=== PATIENT | female | born 1960 | race Caucasian/White ===

== ENCOUNTER 2018-01-11 14:06 | Emergency (ER) | payer MEDICAID ==
[~2018-01-11] VITALS: Ht 167.6 cm; Wt 69.4 kg
[2018-01-11 14:14] VITALS: BP 125/78
[2018-01-11] MEDS ORDERED: CEPHALEXIN 500 MG CAPSULE PO ONE (14:30)
[2018-01-11] MEDS ORDERED: CEPHALEXIN 500 MG CAPSULE ONE (14:36)
== END 2018-01-11 14:51 | disposition home or self-care (01) ==
LOC: ED 14:45
DX: L03.031 Cellulitis of right toe (principal); B35.3 Tinea pedis
CPT/HCPCS: 82962; 99283

== ENCOUNTER 2018-07-31 20:22 | Emergency (ER) | payer SELFPAY ==
[~2018-07-31] VITALS: Ht 167.6 cm; Wt 69.3 kg
--- NOTE | 2018-07-31 20:44 | NUR ---
PT STATES THAT SHE HAS BEEN HAVING N/V/D X 5 DAYS. PT STATES THAT SHE HASN'T REALLY BEEN ABLE TO KEEP ANY FOOD OR FLUIDS DOWN. monitors applied, siderails up x2, call light within reach
[2018-07-31] MEDS ORDERED: METH500T7 PO (20:47)
[2018-07-31] MEDS ORDERED: DIPH25CA61 PO (20:47)
[2018-07-31] MEDS ORDERED: MONT4GRA PO (20:47)
[2018-07-31] MEDS ORDERED: OXYB5TAB7 PO (20:47)
[2018-07-31] MEDS ORDERED: SODIUM CHLORIDE FLUSH 10ML SYR IVF ONE (21:00)
[2018-07-31] MEDS ORDERED: SODIUM CHLORIDE 0.9% 1,000ML IVBOLUS ONE (21:00)
[2018-07-31] MEDS ORDERED: FAMOTIDINE 20 MG/2 ML IVP ONE (21:00)
[2018-07-31] MEDS ORDERED: ONDANSETRON 2MG/ML, 2ML IVPush ONE (21:00)
[2018-07-31] MEDS ORDERED: FAMOTIDINE 20 MG/2 ML ONE (21:07)
[2018-07-31] MEDS ORDERED: ONDANSETRON 2MG/ML, 2ML ONE (21:08)
--- NOTE | 2018-07-31 21:16 | NUR ---
IV SITE STARTED BY NETWORK ADMIN STUDENT, IV FLUIDS INFUSING AND PT MEDICATED PER MAR. AWAITING LAB RESULTS
[2018-07-31 21:17] LABS: BASOPHILS # (AUTO) 0.06 x10^3/uL (0-0.1); BASOPHILS % (AUTO) 1 % (0-1); EOSINOPHILS # (AUTO) 0.07 x10^3/uL (0-0.4); EOSINOPHILS % (AUTO) 1 % (1-7); LYMPHOCYTES # (AUTO) 3.13 x10^3/uL (1-3.4); LYMPHOCYTES % (AUTO) 45 % (22-44); MD NO; MEAN CORPUSCULAR HEMOGLOBIN 34.9 pg (27.0-34.8); MEAN CORPUSCULAR VOLUME 102.7 fL (80-100); MEAN PLATELET VOLUME 7.4 fL (7.4-10.4); MONOCYTES # (AUTO) 0.74 x10^3/uL (0.2-0.8); MONOCYTES % (AUTO) 11 % (2-9); NEUTROPHILS # (AUTO) 2.92 x10^3/uL (1.8-6.8); NEUTROPHILS % (AUTO) 42 % (42-75); PLATELET COUNT 271 x10^3/uL (130-400); RED BLOOD COUNT 4.82 x10^6/uL (3.82-5.3); RED CELL DISTRIBUTION WIDTH 14.1 % (9.6-15.2)
[2018-07-31 21:30] LABS: ALBUMIN 3.8 g/dL (3.4-5.0); ANION GAP 11 mmol/L (5-15); CALCIUM 9.5 mg/dL (8.5-10.1); CHLORIDE 107 mmol/L (98-107)
[2018-07-31 21:33] LABS: ALANINE AMINOTRANSFERASE 53 U/L (12-78); ALKALINE PHOSPHATASE 67 U/L (45-117); BILIRUBIN,TOTAL 0.3 mg/dL (0.2-1.0); CREATININE 0.61 mg/dL (0.55-1.02); TOTAL PROTEIN 7.5 g/dL (6.4-8.2)
[2018-07-31 21:46] VITALS: BP 125/77
--- NOTE | 2018-07-31 21:46 | NUR ---
pt resting calmly, monitors in palce, call light within reach, denies needs. chart up for recheck
== END 2018-07-31 22:39 | disposition home or self-care (01) ==
LOC: ED 21:54
DX: F10.220 Alcohol dependence with intoxication, uncomplicated (principal); E86.0 Dehydration; R11.2 Nausea with vomiting, unspecified; F17.200 Nicotine dependence, unspecified, uncomplicated
CPT/HCPCS: 36415; 80053; 80307; 83690; 85025; 96361; 96374; 96375; 99283; J2405; J3490; J7030